=== PATIENT | male | born 1945 | race Hispanic/Latino ===

== ENCOUNTER → 2019-01-08 | Day surgery (SDC) | payer MEDICARE ==
[2019-01-04 17:24] LABS: BASOPHILS # (AUTO) 0.1 (0.0-0.1); BASOPHILS % 0.6 % (0.0-1.0); EOSINOPHILS # (AUTO) 0.2 (0.0-0.4); EOSINOPHILS % 1.9 % (0.0-6.0); HEMATOCRIT 35.2 % (38.2-49.6); HEMOGLOBIN 11.6 g/dL (14.0-18.0); LYMPHOCYTES # (AUTO) 2.8 (1.0-3.2); LYMPHOCYTES % 27.9 % (18.0-39.1); MEAN CORPUSCULAR HEMOGLOBIN 29.1 pg (28-32); MEAN CORPUSCULAR VOLUME 88.2 fL (81-99); MONOCYTES # (AUTO) 0.7 (0.2-0.8); MONOCYTES % 7.5 % (4.4-11.3); NEUTROPHILS # (AUTO) 6.1 (2.1-6.9); NEUTROPHILS % 61.8 % (38.7-80.0); PLATELET COUNT 179 x10e3/uL (140-360); RED BLOOD COUNT 3.99 x10e6/uL (4.3-5.7); RED CELL DISTRIBUTION WIDTH 14.2 % (11.7-14.4)
[2019-01-04 17:37] LABS: INR 0.84; PARTIAL THROMBOPLASTIN TIME 28.7 seconds (23.8-35.5)
[2019-01-04 17:42] LABS: ALBUMIN 4.3 g/dL (3.5-5.0); ALBUMIN/GLOBULIN RATIO 1.4 (0.8-2.0); ANION GAP 14.9 mmol/L (8-16); CALCIUM 9.8 mg/dL (8.4-10.2); CREATININE, SERUM 1.2 mg/dL (0.72-1.25); POTASSIUM 3.9 mmol/L (3.5-5.1)
--- NOTE | 2019-01-04 17:50 | Diagnostic Imaging Report ---
EXAMINATION: CHEST 2 VIEWS INDICATION: Preoperative COMPARISON: None. FINDINGS: TUBES and LINES: None. LUNGS: The lung volumes are normal. No focal consolidation or pulmonary edema. PLEURA: No pleural effusion or pneumothorax. HEART AND MEDIASTINUM: The cardiomediastinal silhouette is normal in size and contour. Atherosclerotic calcifications of the thoracic aorta. BONES AND SOFT TISSUES: No acute fracture or dislocation. UPPER ABDOMEN: No free air under the diaphragm. IMPRESSION: No focal pneumonia or pulmonary edema. Signed by: Matt Quintana MD on 01/04/2019 5:47 PM
[~2019-01-08] VITALS: Ht 170.2 cm; Wt 81.6 kg
[2019-01-08] VITALS (9 sets, daily range): BP systolic 125–165; BP diastolic 56–77
[~2019-01-08] MED LIST: AMLODIPINE BESY10 MG PO; AVODART0.5 MG PO; CENTRUM COMPLE1 EACH PO; CLONIDINE HCL0.1 MG PO; CLOPIDOGREL75 MG PO; CRESTOR10 MG PO; DIPHENHYDRAMINE25 M2 PO; FENTANYL CITRATE/PF 100MCG/2 ML INJ ONE; FERROUS SULFAT325 MG PO; FLOMAX0.4 MG PO; HEPARIN SOD/SOD CHLORIDE 2,000 ML ONE; IOPAMIDOL 300MG/ML 100 ML INFUS..BTL IV ONE; JANUMET XR 1001 EACH PO; LIDOCAINE HCL 2% LOCAL 20 ML VIAL ONE; LORATADINE10 MG PO; LOSARTAN POTAS100 MG PO; MIDAZOLAM HCL 2 MG/2 ML VIAL ONE; OMEGA 3 1,0001 EACH PO; OYSTER SHELL 51 EACH PO; PREPARATION H RC; RAPAFLO8 MG PO; SENNA LAXATIVE1 EACH PO; SODIUM CHLORIDE 0.9% 1000ML 1,000 ML ONE; TRIAMTERENE-HCTZ1 EA PO; VITAMIN B12-FO1 EACH PO; [UNRECOGNIZED DRUG - MIXTURE] PO; [UNRECOGNIZED DRUG - OTHER] PO
--- OUTSIDE RECORDS SUMMARY | 2019-01-08 07:03 | XMS REPORT ---
Author Author [facility] Address Unknown Phone Unavailable Care Team Providers Care Assembler Unit Name Role Phone MARCIA OSMAN Unavailable Unavailable Problems This patient has no known problems. Allergies, Adverse Reactions, Alerts This patient has no known allergies or adverse reactions. Medications This patient has no known medications. Results Test Description Test Time Test Comments Text Results Atomic Results Result Comments CHEST 2 VIEWS 2019-01-04 17:46:00 [facility] [address] [address] Patient Name: ISAÍAS MONTILLA MR #: [id number] : 1945 Age/Sex: 73/M Req #: [id number] [facility] Physician: Ordered by: MARCIA OSMAN MD Report #: [id number] Location: [facility] Room/Bed: Procedure: [id number] DX/CHEST 2 VIEWS Exam Date: 01/04/19 Exam Time: 1730 REPORT STATUS: Signed EXAMINATION: CHEST 2 VIEWS INDICATION: Preoperative COMPARISON: None. FINDINGS: TUBES and LINES: None. LUNGS: The lung volumes are normal. No focal consolidation or pulmonary edema. PLEURA: No pleural effusion or pneumothorax. HEART AND MEDIASTINUM: The cardiomediastinal silhouette is normal in size and contour. Atherosclerotic calcifications of the thoracic aorta. BONES AND SOFT TISSUES: No acute fracture or dislocation. UPPER ABDOMEN: No free air under the diaphragm. IMPRESSION: No focal pneumonia or pulmonary edema. Signed by: Bri Quintana MD on 01/04/2019 5:47 PM Dictated By: BRI QUINTANA MD 48 Transcribed By: JOSE on 01/04/191746 COPY TO: MARCIA OSMAN MD
--- NOTE | 2019-01-08 09:52 | NUR ---
0952am Bedside report received from CHARLIE Moore. Alert oriented and appropriate, PERRLA, respirations even and unlabored to room air. Pulses x4 extremities palpable equal and strong. Pedal pulses PT/DP Cap fill brisk < [address] Ryan spoke with family DC papers signed with copies to family Skin warm and dry integrity appears intact IV 20g to presents healthy w/o s/s of infiltration or complaint. Abdomen soft and supple. pt offered toileting, denies need to urinate or defecate. No personal affects with patient. Family remain at bedside. Pt and family verbalizes understanding of POC. Remains flat till dc time 1pm. No grossissues pain pallor pressure dysrhythmia. Rt groin MYNX site dry and intact no hematoma or oozing. ds/rn
--- NOTE | 2019-01-08 12:08 | Operative Report ---
DATE OF PROCEDURE: 01/08/2019 SURGEON: Brian Ryan MD PROCEDURE: Peripheral angiogram third order. INDICATION: Peripheral vascular disease. ANESTHESIA: Versed, fentanyl, and lidocaine. COMPLICATIONS: None. TECHNIQUE: The right groin was draped and prepped in the usual fashion. The area was anesthetized with lidocaine. Standard Seldinger technique was used to place a 6-Persian sheath into the right femoral artery without difficulty. An Advantage guidewire and internal mammary artery catheter used to cross from the right common femoral artery down to the left iliac artery and then the left popliteal artery. Selective injections of the left leg were obtained, selective injections of the right leg were obtained through the existing sheath. There were no complications. RESULTS: Right leg: The patient had minimal disease in the right leg with three-vessel runoff and minimal disease in any of the tibial vessels. There was no significant stenosis in the right leg. Left leg: The left leg demonstrated patent common iliac, patent external iliac, patent internal iliac, patent common femoral, patent superficial femoral artery, patent femoral artery, patent popliteal artery and patent trifurcation with no significant disease. The left anterior tibial artery was diffusely diseased, it did not extend to the foot. The left peroneal artery and left posterior tibial arteries did extend down to the foot and there was two-vessel runoff. CONCLUSION: The patient has a diffusely diseased left anterior tibial artery with patent posterior tibial and peroneal arteries on the left and two-vessel runoff. Brian Ryan MD DSH/MODL /[id number]
--- NOTE | 2019-01-08 12:30 | NUR ---
1230p meets DC criteria. Left froin Mynx site assessed for s/s of complication and w/o s/s hematoma. Skin Intact warm, dry, no discolor, and pulses present. IV removed from . Distal tip appears intact. VS WNL. Pt denies pain, sob, or need at this time. Family escorted pt out. Review of discharge paperwork and follow up instructions. verbalized understanding. Pt to wheelchair and transported to front of hospital. Transferred to private vehicle under own strength w/o incident with DC paperwork in hand. - ds/rn
== END | disposition home or self-care (01) ==
LOC: CATH LAB 07:01
PROVIDERS: ATTEND Internal Medicine Cardiovascular Disease
DX: I70.213 Atherosclerosis of native arteries of extremities with intermittent claudication, bilateral legs (principal); I10 Essential (primary) hypertension; I25.10 Atherosclerotic heart disease of native coronary artery without angina pectoris; Z01.812 Encounter for preprocedural laboratory examination; Z01.818 Encounter for other preprocedural examination; Z79.02 Long term (current) use of antithrombotics/antiplatelets; Z95.5 Presence of coronary angioplasty implant and graft; Z82.49 Family history of ischemic heart disease and other diseases of the circulatory system
CPT/HCPCS: 36247; 36415; 71046; 75716; 80053; 85025; 85610; 85730; C1760; C1769 ×2; J2001; J2250; J3010; J7030; Q9967

== ENCOUNTER 2019-08-09 10:53 | Emergency (ER) | payer OTHER ==
[~2019-08-09] VITALS: Ht 170.2 cm; Wt 81.6 kg
[~2019-08-09 10:53] MED LIST changes: -FENTANYL CITRATE/PF 100MCG/2 ML INJ ONE; -HEPARIN SOD/SOD CHLORIDE 2,000 ML ONE; -IOPAMIDOL 300MG/ML 100 ML INFUS..BTL IV ONE; -LIDOCAINE HCL 2% LOCAL 20 ML VIAL ONE; -MIDAZOLAM HCL 2 MG/2 ML VIAL ONE; -SODIUM CHLORIDE 0.9% 1000ML 1,000 ML ONE
[2019-08-09] MEDS ORDERED: CEFEPIME HCL 1 GM VIAL IV SCH (11:15)
[2019-08-09] MEDS ORDERED: SODIUM CHLORIDE 0.9% 1000ML 1,000 ML IV SCH (11:15)
[2019-08-09] MEDS ORDERED: CEFEPIME 1GM/NS 0.9% 50 ML 50 ML IV ONE (11:20)
[2019-08-09 11:38] LABS: BASOPHILS % 0.2 % (0.0-1.0); EOSINOPHILS % 0.3 % (0.0-6.0); HEMATOCRIT 36.4 % (38.2-49.6); HEMOGLOBIN 12.1 g/dL (14.0-18.0); LYMPHOCYTES % 14.9 % (18.0-39.1); MEAN CORPUSCULAR HEMOGLOBIN 28.3 pg (28-32); MEAN CORPUSCULAR HGB CONC 33.2 g/dL (31-35); MEAN CORPUSCULAR VOLUME 85.2 fL (81-99); MONOCYTES % 7.1 % (4.4-11.3); NEUTROPHILS # (AUTO) 10.6 (2.1-6.9); NEUTROPHILS % 77.2 % (38.7-80.0); PLATELET COUNT 171 x10e3/uL (140-360); RED BLOOD COUNT 4.27 x10e6/uL (4.3-5.7); RED CELL DISTRIBUTION WIDTH 14.9 % (11.7-14.4)
[2019-08-09 11:58] LABS: ALBUMIN 3.7 g/dL (3.5-5.0); ALBUMIN/GLOBULIN RATIO 1.2 (0.8-2.0); ANION GAP 12.6 mmol/L (8-16); CALCIUM 9.3 mg/dL (8.4-10.2); CREATININE, SERUM 1.34 mg/dL (0.72-1.25); POTASSIUM 3.6 mmol/L (3.5-5.1)
[2019-08-09] MEDS ORDERED: IOPAMIDOL 370 MG/ML 200 ML INFUS..BTL INJ ONE (12:24)
[2019-08-09] MEDS ORDERED: SODIUM CHLORIDE 0.9% 250ML 250 ML ONE (12:24)
--- NOTE | 2019-08-09 12:34 | NUR ---
IRRIGATED MCNEILL WITH 350ML NS WITH RETURN OF CLEAR RETURN. STILL HAS BLOOD CLOTS THAT OCCASIONALLY PASS. DISCUSSED WITH MAGDALENA TAN.
[2019-08-09 12:47] LABS: CLARITY,URINE CLOUDY (CLEAR); COLOR,URINE RED (YELLOW); KETONES,URINE NEGATIVE (NEGATIVE); LEUKOCYTE ESTERASE ,URINE SMALL (NEGATIVE); NITRITE,URINE NEGATIVE (NEGATIVE); PROTEIN,URINE DIPSTICK 2+ (NEGATIVE)
[2019-08-09 12:48] LABS: BILIRUBIN,URINE NEGATIVE (NEGATIVE); URINE UROBILINOGEN 0.2 mg/dL (0.2 - 1)
[2019-08-09 13:01] LABS: RBC,URINE >50 /HPF (0-5)
[2019-08-09 13:02] LABS: BACTERIA,URINE RARE /HPF; EPITHELIAL CELLS,URINE RARE /LPF
[2019-08-09] MEDS ORDERED: LIDOCAINE JELLY 2% 10ML URO-JET TOP ONE (13:45)
--- NOTE | 2019-08-09 14:53 | Diagnostic Imaging Report ---
Exam: CT abdomen and pelvis Clinical history: Hematuria Technique: Helical images of the abdomen and pelvis were obtained before and after IV contrast administration DOSE REDUCTION: The exams was performed according to the departmental dose-optimization program which includes automated exposure control, adjustment of the mA and/or kV according to patient size and/or use of iterative reconstruction technique. Findings: The lung bases are clear. There is no evidence of pleural effusion. The cardiac size is within normal limits. The liver, gallbladder, pancreas, spleen, and adrenal glands are unremarkable. Multiple subcentimeter hypodense lesions are noted in both kidneys most compatible with cysts. The small and large bowels are normal in caliber without evidence of obstruction. Moderate retained feces are noted in the cecum. A small calcification structures noted at the base of the appendix which may represent a appendicolith. The appendix is within normal limits in caliber. A Otero catheter is noted within the bladder lumen. There is circumferential thickening of the bladder wall with trabeculation which may be associated with chronic bladder outlet obstruction. The prostate also appears enlarged. There is no evidence of lymphadenopathy or free fluid. The aorta and IVC are normal in caliber. Impression: 1. Circumferential thickening of the urinary bladder with trabeculation which may be associated chronic bladder outlet obstruction. If indicated, cystoscopy can be performed for further assessment. 2. Prostate enlargement. 3. Multiple hypodense lesions in both kidneys most compatible with cysts. 4. Tiny appendicolith without evidence of acute appendicitis. Signed by: Dr. Enoch Rogers MD on 08/09/2019 2:50 PM
[2019-08-09] MEDS ORDERED: FLOMAX0.4 MG PO (15:33)
[2019-08-09] MEDS ORDERED: BACTRIM DS TAB1 EACH PO (15:33)
[2019-08-09] MEDS ORDERED: OXYBUTYNIN CHLOR5 MG PO (16:13)
[2019-08-09] MEDS ORDERED: OXYBUTYNIN CHLORIDE 5 MG TAB PO ONE (16:15)
== END 2019-08-09 16:35 | disposition home or self-care (01) ==
LOC: ER 10:53
DX: R30.0 Dysuria (principal); R33.9 Retention of urine, unspecified; N30.01 Acute cystitis with hematuria; N40.1 Benign prostatic hyperplasia with lower urinary tract symptoms; I10 Essential (primary) hypertension; E11.9 Type 2 diabetes mellitus without complications; I25.10 Atherosclerotic heart disease of native coronary artery without angina pectoris; E78.5 Hyperlipidemia, unspecified
CPT/HCPCS: 36415; 51702; 74178; 80053; 81001; 85025; 99284; J0692; J7030; J7050; Q9967; 51700

== ENCOUNTER → 2019-12-15 | Day surgery (SDC) | payer MEDICARE, OTHER ==
[2019-12-11 10:51] LABS: BASOPHILS % 0.5 % (0.0-1.0); EOSINOPHILS # (AUTO) 0.1 (0.0-0.4); EOSINOPHILS % 1.3 % (0.0-6.0); HEMATOCRIT 37.3 % (38.2-49.6); HEMOGLOBIN 12.3 g/dL (14.0-18.0); LYMPHOCYTES # (AUTO) 2.1 (1.0-3.2); LYMPHOCYTES % 25.6 % (18.0-39.1); MEAN CORPUSCULAR HEMOGLOBIN 28.3 pg (28-32); MEAN CORPUSCULAR VOLUME 85.7 fL (81-99); MONOCYTES # (AUTO) 0.6 (0.2-0.8); MONOCYTES % 7.2 % (4.4-11.3); NEUTROPHILS # (AUTO) 5.4 (2.1-6.9); NEUTROPHILS % 65.2 % (38.7-80.0); PLATELET COUNT 210 x10e3/uL (140-360); RED BLOOD COUNT 4.35 x10e6/uL (4.3-5.7); RED CELL DISTRIBUTION WIDTH 13.6 % (11.7-14.4)
[~2019-12-15] MED LIST changes: +BACTRIM DS TAB1 EACH PO; +EPHEDRINE SULFATE INJ 50 MG/ML VIAL ONE; +MAGNESIUM OXID400 MG PO; +OXYBUTYNIN CHLOR5 MG PO; +PROPOFOL IV EMULSION 10 MG/ML 20 ML VIAL ONE
[2019-12-15] MEDS: HYOSCYAMINE 0.125 MG TAB ONE ×2 (10:55→10:58)
[2019-12-15 12:10] VITALS: BP 140/73
--- NOTE | 2019-12-15 13:24 | Operative Report ---
DATE OF PROCEDURE: 12/15/2019 SURGEON: Jose Mathis MD PROCEDURES: EGD with biopsies and colonoscopy with polypectomy. INDICATION FOR EGD: Melena. INDICATIONS FOR COLONOSCOPY: Surveillance colonoscopy, personal history of colon polyps, anemia. MEDICATIONS: The patient was under MAC, please see anesthesiologist's note. PROCEDURE IN DETAIL: With the patient in the left lateral decubitus position, a flexible fiberoptic Olympus gastroscope was introduced into the esophagus under direct visualization without any difficulty. There was some patchy erythema noted in distal esophagus. The scope was then advanced with ease into the stomach. Mucosa overlying the antrum revealed some diffuse erythema and low-grade edema, and biopsies were obtained and sent to stain for Helicobacter pylori. There were some prominent folds noted in the body of the stomach and biopsies were obtained. Pylorus was of normal contour and shape, was intubated with ease and the scope was advanced all the way to the second portion of the duodenum. Biopsies were obtained from the proximal second portion and duodenal bulb to rule out sprue. The scope was then withdrawn back into the stomach and retroflexed. Mucosa overlying the fundus and the cardia appeared to be within normal limits. The scope was then straightened out, it was subsequently withdrawn, and the patient tolerated the procedure well. IMPRESSION: 1. Distal esophagitis. 2. Gastritis, biopsied, biopsies sent to stain for Helicobacter pylori. 3. Rule out sprue. PLAN: Follow up histology. Initiate Protonix 40 mg one p.o. q.a.m. before meals. The patient was then turned around and after adequate lubrication of the anal canal, a flexible fiberoptic Olympus colonoscope was inserted into the rectum with ease and advanced all the way to the cecum. A single diverticulum was noted in the cecum. One polyp was removed per the cold biopsy forceps from the cecum and one polyp was removed per the cold biopsy forceps from the proximal ascending colon. The rest of the ascending colon, transverse, descending, and sigmoid grossly appeared to be within normal limits. Two polyps were hot biopsied from the rectum. The scope was then retroflexed into the distal rectum and small internal hemorrhoids were noted, none of which was actively bleeding. The scope was then straightened out, it was subsequently withdrawn, and the patient tolerated the procedure well. IMPRESSION: 1. Single cecal diverticulum. 2. Cecal polyp, minute, removed per the cold biopsy forceps. 3. Ascending colon polyp, minute, removed per the cold biopsy forceps. 4. Rectal polyps x2, hot biopsied. PLAN: Follow up histology. Initiate high-fiber, low-fat diet. Initiate high-fiber supplement. The patient will need a small bowel series and if negative, might benefit from a capsule endoscopy. A followup colonoscopy in 3 to 5 years. MD SHONA Morgan/BHAVIK /[id number] cc: Gregorio Venegas DO
== END | disposition home or self-care (01) ==
LOC: ENDO 09:57
PROVIDERS: ATTEND Internal Medicine Gastroenterology
DX: D12.0 Benign neoplasm of cecum (principal); D12.2 Benign neoplasm of ascending colon; K62.1 Rectal polyp; K20.9 Esophagitis, unspecified; K29.70 Gastritis, unspecified, without bleeding; K57.30 Diverticulosis of large intestine without perforation or abscess without bleeding; D64.89 Other specified anemias; K59.00 Constipation, unspecified; E78.00 Pure hypercholesterolemia, unspecified; Z72.0 Tobacco use; Z68.28 Body mass index [BMI] 28.0-28.9, adult; E11.9 Type 2 diabetes mellitus without complications; I10 Essential (primary) hypertension; I25.10 Atherosclerotic heart disease of native coronary artery without angina pectoris; K31.9 Disease of stomach and duodenum, unspecified; Z11.59 Encounter for screening for other viral diseases; Z01.812 Encounter for preprocedural laboratory examination; Z01.818 Encounter for other preprocedural examination
CPT/HCPCS: 36415 ×2; 43239; 45380; 45384; 82948; 85025; 87635; 93005; J2704; 45378

== ENCOUNTER → 2020-01-06 | Outpatient (CLI) | payer MEDICARE, OTHER ==
[~2020-01-06] MED LIST changes: -EPHEDRINE SULFATE INJ 50 MG/ML VIAL ONE; +HEPARIN SOD (PORCINE) 1000 UNIT/ML SDV ONE; -PROPOFOL IV EMULSION 10 MG/ML 20 ML VIAL ONE
--- NOTE | 2020-01-06 12:06 | Diagnostic Imaging Report ---
Tagged-RBC GI Bleed Study Clinical information: 74-year-old male with anemia and black stools x1 month.. Discussion: The patient's own red blood cells were labeled with 26.7 mCi of technetium-99m pertechnetate using the in vitro method (UltraTag). Dynamic images of the abdomen were obtained through 60 minutes. Distribution of tracer activity appears physiologic throughout the abdominal blood pool. No abnormal accumulation of tracer is seen within the gastrointestinal lumen. Diffuse haziness of the peritoneal cavity is suggestive of ascites. Impression: 1. No scan evidence of active gastrointestinal bleeding at this time. 2. Cannot exclude ascites. Correlative imaging may be warranted. Signed by: Dr. Temi Lechuga M.D. on 01/06/2020 12:03 PM
== END ==
LOC: NM 08:36
PROVIDERS: ATTEND Internal Medicine Gastroenterology
DX: D64.9 Anemia, unspecified (principal)
CPT/HCPCS: 78278; A9512 ×2; J1644

== ENCOUNTER → 2021-11-06 | Outpatient (CLI) | payer MEDICARE ==
[~2021-11-06] MED LIST changes: -HEPARIN SOD (PORCINE) 1000 UNIT/ML SDV ONE; +IOPAMIDOL 370 MG/ML 100 ML INFUS..BTL INJ ONE; +SODIUM CHLORIDE 0.9% 100 ML ONE
[2021-11-06 09:31] LABS: CREATININE, SERUM 1.05 mg/dL (0.72-1.25)
== END ==
LOC: CT 08:38
PROVIDERS: ATTEND Internal Medicine Cardiovascular Disease
DX: I65.23 Occlusion and stenosis of bilateral carotid arteries (principal); I70.213 Atherosclerosis of native arteries of extremities with intermittent claudication, bilateral legs
CPT/HCPCS: 36415; 70498; 82565; 84520; J7050; Q9967

== ENCOUNTER → 2021-11-07 | Outpatient (CLI) | payer MEDICARE ==
[~2021-11-07] MED LIST changes: -SODIUM CHLORIDE 0.9% 100 ML ONE
== END ==
LOC: CT 08:14
PROVIDERS: ATTEND Internal Medicine Cardiovascular Disease
DX: I65.23 Occlusion and stenosis of bilateral carotid arteries (principal); I70.213 Atherosclerosis of native arteries of extremities with intermittent claudication, bilateral legs
CPT/HCPCS: 75635; Q9967

== ENCOUNTER → 2022-01-29 | Outpatient (CLI) | payer MEDICARE ==
[~2022-01-29] MED LIST changes: +DIATRIZOATE MEGL/DIATRIZOA SOD 30 ML BTL PO ONE
[2022-01-29 12:42] LABS: CREATININE, SERUM 1.06 mg/dL (0.72-1.25)
== END ==
LOC: CT 11:42
PROVIDERS: ATTEND Internal Medicine Gastroenterology
DX: R10.9 Unspecified abdominal pain (principal); R74.8 Abnormal levels of other serum enzymes
CPT/HCPCS: 36415; 74177; 82565; 84520; Q9963; Q9967

== ENCOUNTER → 2022-04-04 | Day surgery (SDC) | payer MEDICARE ==
[2022-04-02 11:16] LABS: BASOPHILS # (AUTO) 0.1 (0.0-0.1); BASOPHILS % 0.6 % (0.0-1.0); EOSINOPHILS # (AUTO) 0.2 (0.0-0.4); EOSINOPHILS % 2.4 % (0.0-6.0); HEMATOCRIT 34.9 % (38.2-49.6); HEMOGLOBIN 10.8 g/dL (14.0-18.0); LYMPHOCYTES # (AUTO) 3.3 (1.0-3.2); LYMPHOCYTES % 35.4 % (18.0-39.1); MEAN CORPUSCULAR HEMOGLOBIN 28.6 pg (28-32); MEAN CORPUSCULAR HGB CONC 30.9 g/dL (31-35); MEAN CORPUSCULAR VOLUME 92.3 fL (81-99); MONOCYTES # (AUTO) 0.7 (0.2-0.8); MONOCYTES % 7.3 % (4.4-11.3); PLATELET COUNT 209 x10e3/uL (140-360); RED BLOOD COUNT 3.78 x10e6/uL (4.3-5.7)
[2022-04-02 11:24] LABS: INR 0.86; PROTHROMBIN TIME 12.5 seconds (11.9-14.5)
[2022-04-02 11:25] LABS: PARTIAL THROMBOPLASTIN TIME 26.3 seconds (23.8-35.5)
[2022-04-02 11:32] LABS: ALBUMIN 3.9 g/dL (3.5-5.0); ALBUMIN/GLOBULIN RATIO 1.3 (0.8-2.0); ANION GAP 14.8 mmol/L (8-16); CALCIUM 9.2 mg/dL (8.4-10.2); CREATININE, SERUM 0.96 mg/dL (0.72-1.25); POTASSIUM 3.8 mmol/L (3.5-5.1)
[~2022-04-04] MED LIST changes: -DIATRIZOATE MEGL/DIATRIZOA SOD 30 ML BTL PO ONE; -IOPAMIDOL 370 MG/ML 100 ML INFUS..BTL INJ ONE; +JANUMET 50-1,01 EACH PO; +PROPOFOL IV EMULSION 10 MG/ML 20 ML VIAL ONE; +VITAMIN E268 MG PO
[2022-04-04 12:54] VITALS: BP 116/62
== END | disposition home or self-care (01) ==
LOC: OR 09:52
PROVIDERS: ATTEND Internal Medicine Gastroenterology
DX: K29.50 Unspecified chronic gastritis without bleeding (principal); I25.10 Atherosclerotic heart disease of native coronary artery without angina pectoris; I10 Essential (primary) hypertension; N40.0 Benign prostatic hyperplasia without lower urinary tract symptoms; H26.9 Unspecified cataract; K63.5 Polyp of colon; K76.9 Liver disease, unspecified; K62.1 Rectal polyp; Z68.27 Body mass index [BMI] 27.0-27.9, adult; D64.9 Anemia, unspecified; E78.00 Pure hypercholesterolemia, unspecified; Z95.5 Presence of coronary angioplasty implant and graft; Z01.812 Encounter for preprocedural laboratory examination; Z01.810 Encounter for preprocedural cardiovascular examination; Z88.8 Allergy status to other drugs, medicaments and biological substances; F17.210 Nicotine dependence, cigarettes, uncomplicated
CPT/HCPCS: 36415; 43239; 80053; 85025; 85610; 85730; 88305; 88342; 93005; C9113; 88304; 88312

== ENCOUNTER 2022-05-11 11:55 | Emergency (ER) | payer MEDICARE ==
[~2022-05-11] VITALS: Ht 170.2 cm; Wt 81.6 kg
[~2022-05-11 11:55] MED LIST changes: -PROPOFOL IV EMULSION 10 MG/ML 20 ML VIAL ONE
[2022-05-11] MEDS ORDERED: LACTATED RINGER'S 1,000 ML INJ ONE (12:15)
[2022-05-11] MEDS ORDERED: SODIUM CHLORIDE FLUSH 10 ML SYR INJ PRN (12:15)
[2022-05-11 12:54] LABS: BASOPHILS % 0.3 % (0.0-1.0); EOSINOPHILS # (AUTO) 0.1 (0.0-0.4); EOSINOPHILS % 1.3 % (0.0-6.0); HEMATOCRIT 35.2 % (38.2-49.6); HEMOGLOBIN 10.9 g/dL (14.0-18.0); LYMPHOCYTES # (AUTO) 1.5 (1.0-3.2); LYMPHOCYTES % 20.7 % (18.0-39.1); MEAN CORPUSCULAR HEMOGLOBIN 26.7 pg (28-32); MEAN CORPUSCULAR VOLUME 86.3 fL (81-99); MONOCYTES # (AUTO) 0.6 (0.2-0.8); MONOCYTES % 8.3 % (4.4-11.3); NEUTROPHILS # (AUTO) 4.9 (2.1-6.9); PLATELET COUNT 198 x10e3/uL (140-360); RED BLOOD COUNT 4.08 x10e6/uL (4.3-5.7); RED CELL DISTRIBUTION WIDTH 14.6 % (11.7-14.4)
[2022-05-11 12:59] LABS: CLARITY,URINE CLEAR (CLEAR); COLOR,URINE YELLOW (YELLOW); KETONES,URINE TRACE (NEGATIVE); LEUKOCYTE ESTERASE ,URINE NEGATIVE (NEGATIVE); NITRITE,URINE NEGATIVE (NEGATIVE); PROTEIN,URINE DIPSTICK 1+ (NEGATIVE); URINE UROBILINOGEN 0.2 mg/dL (0.2 - 1)
[2022-05-11 13:09] LABS: ALBUMIN 3.3 g/dL (3.5-5.0); ANION GAP 16.4 mmol/L (8-16); CALCIUM 9.9 mg/dL (8.4-10.2); CREATININE, SERUM 1.19 mg/dL (0.72-1.25); MAGNESIUM 1.8 MG/DL (1.3-2.1); PHOSPHORUS 3.7 MG/DL (2.3-4.7); POTASSIUM 3.4 mmol/L (3.5-5.1)
[2022-05-11 13:13] LABS: BACTERIA,URINE FEW /HPF; EPITHELIAL CELLS,URINE FEW /LPF; RBC,URINE 0-5 /HPF (0-5); WBC,URINE (MAN) 0-5 /HPF (0-5)
[2022-05-11 14:17] VITALS: BP 161/60
== END 2022-05-11 14:20 | disposition home or self-care (01) ==
LOC: ER 11:58
DX: R41.0 Disorientation, unspecified (principal); T37.5X5A Adverse effect of antiviral drugs, initial encounter; E11.65 Type 2 diabetes mellitus with hyperglycemia; I10 Essential (primary) hypertension; E78.5 Hyperlipidemia, unspecified; I25.10 Atherosclerotic heart disease of native coronary artery without angina pectoris; K21.9 Gastro-esophageal reflux disease without esophagitis
CPT/HCPCS: 36415; 70450; 71045; 80053; 81001; 83735; 84100; 84484; 85025; 99284; J7121

== ENCOUNTER 2022-08-04 22:47 | Emergency (ER) | payer MEDICARE ==
[~2022-08-04] VITALS: Ht 170.2 cm; Wt 81.6 kg
[2022-08-04 23:22] LABS: BASOPHILS # (AUTO) 0.1 (0.0-0.1); BASOPHILS % 0.6 % (0.0-1.0); EOSINOPHILS # (AUTO) 0.1 (0.0-0.4); LYMPHOCYTES # (AUTO) 2.1 (1.0-3.2); MEAN CORPUSCULAR HEMOGLOBIN 27.4 pg (28-32); MEAN CORPUSCULAR VOLUME 91.2 fL (81-99); MONOCYTES # (AUTO) 0.8 (0.2-0.8); MONOCYTES % 5.9 % (4.4-11.3); NEUTROPHILS # (AUTO) 9.5 (2.1-6.9); NEUTROPHILS % 75.1 % (38.7-80.0); PLATELET COUNT 253 x10e3/uL (140-360); RED BLOOD COUNT 3.29 x10e6/uL (4.3-5.7); RED CELL DISTRIBUTION WIDTH 19.4 % (11.7-14.4)
[2022-08-04] MEDS ORDERED: SODIUM CHLORIDE FLUSH 10 ML SYR IV PRN (23:45)
[2022-08-04 23:56] LABS: CLARITY,URINE CLEAR (CLEAR); COLOR,URINE YELLOW (YELLOW)
[2022-08-04 23:57] LABS: AMPHETAMINES SCREEN,URINE NEGATIVE (NEGATIVE); BACTERIA,URINE FEW /HPF; BENZODIAZEPINES SCREEN,URINE NEGATIVE (NEGATIVE); KETONES,URINE 1+ (NEGATIVE); LEUKOCYTE ESTERASE ,URINE NEGATIVE (NEGATIVE); NITRITE,URINE NEGATIVE (NEGATIVE); PHENCYCLIDINE SCREEN,URINE NEGATIVE (NEGATIVE); PROTEIN,URINE DIPSTICK NEGATIVE (NEGATIVE); RBC,URINE 0-5 /HPF (0-5); URINE UROBILINOGEN 0.2 mg/dL (0.2 - 1); WBC,URINE (MAN) 0-5 /HPF (0-5)
[2022-08-04 23:58] LABS: INR 0.9; PROTHROMBIN TIME 12.4 seconds (11.9-14.5)
[2022-08-04 23:59] LABS: PARTIAL THROMBOPLASTIN TIME 24.2 seconds (23.8-35.5)
[2022-08-05 00:06] LABS: EPITHELIAL CELLS,URINE MANY /LPF; MUCUS,URINE MODERATE (RARE)
[2022-08-05 00:07] LABS: ALBUMIN 3.6 g/dL (3.5-5.0); ALBUMIN/GLOBULIN RATIO 1.1 (0.8-2.0); CALCIUM 9.9 mg/dL (8.4-10.2); CREATININE, SERUM 1.18 mg/dL (0.72-1.25)
[2022-08-05] MEDS ORDERED: FERGON240 MG PO (04:07)
[2022-08-05 04:28] VITALS: BP 123/82
== END 2022-08-05 04:27 | disposition home or self-care (01) ==
LOC: ER 23:45
DX: R41.0 Disorientation, unspecified (principal); R53.1 Weakness; D64.9 Anemia, unspecified; R26.2 Difficulty in walking, not elsewhere classified; R94.31 Abnormal electrocardiogram [ECG] [EKG]
CPT/HCPCS: 36415; 70450; 71045; 80053; 80307; 80320; 81001; 84484; 85025; 85610; 85730; 93005; 94760; 99284

== ENCOUNTER 2022-08-09 11:59 | Emergency (ER) | payer MEDICARE ==
[~2022-08-09] VITALS: Ht 170.2 cm; Wt 81.6 kg
[~2022-08-09 11:59] MED LIST changes: +FERGON240 MG PO
[2022-08-09 12:53] LABS: BASOPHILS % 0.4 % (0.0-1.0); EOSINOPHILS # (AUTO) 0.2 (0.0-0.4); EOSINOPHILS % 2.2 % (0.0-6.0); HEMATOCRIT 27.7 % (38.2-49.6); HEMOGLOBIN 8.1 g/dL (14.0-18.0); LYMPHOCYTES # (AUTO) 2.1 (1.0-3.2); LYMPHOCYTES % 23.9 % (18.0-39.1); MEAN CORPUSCULAR HEMOGLOBIN 27.7 pg (28-32); MEAN CORPUSCULAR HGB CONC 29.2 g/dL (31-35); MEAN CORPUSCULAR VOLUME 94.9 fL (81-99); MONOCYTES # (AUTO) 0.6 (0.2-0.8); NEUTROPHILS # (AUTO) 5.9 (2.1-6.9); NEUTROPHILS % 66.1 % (38.7-80.0); PLATELET COUNT 259 x10e3/uL (140-360); RED BLOOD COUNT 2.92 x10e6/uL (4.3-5.7); RED CELL DISTRIBUTION WIDTH 20.4 % (11.7-14.4)
[2022-08-09 13:06] LABS: INR 0.92; PROTHROMBIN TIME 12.6 seconds (11.9-14.5)
[2022-08-09 13:07] LABS: PARTIAL THROMBOPLASTIN TIME 24.9 seconds (23.8-35.5)
[2022-08-09 13:14] LABS: ALBUMIN 3.6 g/dL (3.5-5.0); ALBUMIN/GLOBULIN RATIO 1.2 (0.8-2.0); ANION GAP 16.2 mmol/L (8-16); CALCIUM 9.7 mg/dL (8.4-10.2); CREATININE, SERUM 1.03 mg/dL (0.72-1.25); MAGNESIUM 1.7 MG/DL (1.3-2.1); POTASSIUM 4.2 mmol/L (3.5-5.1)
[2022-08-09 13:22] LABS: CREATINE KINASE MB 1.6 ng/mL (0-5.0)
[2022-08-09 13:30] LABS: CLARITY,URINE SL CLOUDY (CLEAR); COLOR,URINE YELLOW (YELLOW); LEUKOCYTE ESTERASE ,URINE SMALL (NEGATIVE); NITRITE,URINE NEGATIVE (NEGATIVE)
[2022-08-09 13:31] LABS: KETONES,URINE NEGATIVE (NEGATIVE); PROTEIN,URINE DIPSTICK NEGATIVE (NEGATIVE); URINE UROBILINOGEN 0.2 mg/dL (0.2 - 1)
[2022-08-09 13:43] LABS: BACTERIA,URINE RARE /HPF; EPITHELIAL CELLS,URINE MODERATE /LPF; RBC,URINE 0-5 /HPF (0-5)
[2022-08-09] MEDS ORDERED: NYSTATIN-TRIAMC15 GM TOP (15:02)
[2022-08-09] MEDS ORDERED: FLUCONAZOLE100 MG PO (15:02)
== END 2022-08-09 15:55 | disposition home or self-care (01) ==
LOC: ER 12:38
DX: R53.1 Weakness (principal); B37.42 Candidal balanitis; Z20.822 Contact with and (suspected) exposure to COVID-19; R94.31 Abnormal electrocardiogram [ECG] [EKG]
CPT/HCPCS: 36415; 70450; 71045; 80053; 81001; 82550; 82553; 83735; 83880; 84484; 85025; 85610; 85730; 87086; 93005; 99284; U0002

== ENCOUNTER → 2022-12-12 | Day surgery (SDC) | payer MEDICARE ==
[2022-12-10 09:26] LABS: BASOPHILS # (AUTO) 0.1 (0.0-0.1); BASOPHILS % 0.5 % (0.0-1.0); EOSINOPHILS # (AUTO) 0.2 (0.0-0.4); EOSINOPHILS % 2.3 % (0.0-6.0); HEMATOCRIT 38.6 % (38.2-49.6); HEMOGLOBIN 12.3 g/dL (14.0-18.0); LYMPHOCYTES # (AUTO) 2.5 (1.0-3.2); LYMPHOCYTES % 24.5 % (18.0-39.1); MEAN CORPUSCULAR HEMOGLOBIN 26.4 pg (28-32); MEAN CORPUSCULAR HGB CONC 31.9 g/dL (31-35); MEAN CORPUSCULAR VOLUME 82.8 fL (81-99); MONOCYTES # (AUTO) 0.7 (0.2-0.8); MONOCYTES % 7.3 % (4.4-11.3); NEUTROPHILS # (AUTO) 6.5 (2.1-6.9); NEUTROPHILS % 65.1 % (38.7-80.0); PLATELET COUNT 213 x10e3/uL (140-360); RED BLOOD COUNT 4.66 x10e6/uL (4.3-5.7); RED CELL DISTRIBUTION WIDTH 15.2 % (11.7-14.4)
[~2022-12-12] MED LIST changes: +CENTRUM ULTRA1 EAC1 PO; +FENTANYL CITRATE/PF 100MCG/2 ML INJ ONE; +FLUCONAZOLE100 MG PO; +GLIMEPIRIDE2 MG PO; +LACTATED RINGER'S 1,000 ML ONE; +LIDOCAINE HCL 2% LOCAL INJ 5 ML SDV VIAL INJ ONE; +MIDAZOLAM HCL 2 MG/2 ML VIAL ONE; +NYSTATIN-TRIAMC15 GM TOP; +PROPOFOL IV EMULSION 10 MG/ML 20 ML VIAL ONE; +PROTONIX20 MG PO
[2022-12-12 10:15] VITALS: BP 145/76; PULSE 62; RESP 18; O2SAT 97
[2022-12-17 07:19] LABS: ENDOMYSIAL ANTIBODIES, IGA Negative (Negative)
== END | disposition home or self-care (01) ==
LOC: OR 08:33
PROVIDERS: ATTEND Internal Medicine Gastroenterology
DX: K29.50 Unspecified chronic gastritis without bleeding (principal); D12.2 Benign neoplasm of ascending colon; D12.5 Benign neoplasm of sigmoid colon; K21.9 Gastro-esophageal reflux disease without esophagitis; K57.30 Diverticulosis of large intestine without perforation or abscess without bleeding; K64.8 Other hemorrhoids; D64.9 Anemia, unspecified; K76.9 Liver disease, unspecified; I10 Essential (primary) hypertension; I25.10 Atherosclerotic heart disease of native coronary artery without angina pectoris; E78.5 Hyperlipidemia, unspecified; F17.210 Nicotine dependence, cigarettes, uncomplicated; Z88.8 Allergy status to other drugs, medicaments and biological substances; Z01.810 Encounter for preprocedural cardiovascular examination; Z01.812 Encounter for preprocedural laboratory examination; Z79.02 Long term (current) use of antithrombotics/antiplatelets; Z79.84 Long term (current) use of oral hypoglycemic drugs; Z79.899 Other long term (current) drug therapy; Z95.5 Presence of coronary angioplasty implant and graft
CPT/HCPCS: 36415 ×2; 43239; 45380; 45385; 82784; 82948; 83516; 85025; 86256; 88305; 88342; 93005; C9113; J2001; J2250; J2704; J3010; J7121; 45378

== ENCOUNTER 2024-08-02 06:05 | Inpatient (IN) | payer MEDICARE ==
[2024-08-02] VITALS (7 sets, daily range): BP systolic 139–163; BP diastolic 54–62; PULSE 42–52; RESP 15–18; TEMP 97.5–98.2; O2SAT 98–100
[~2024-08-02] VITALS: Ht 167.6 cm; Wt 78.9 kg
[~2024-08-02 06:05] MED LIST changes: -FENTANYL CITRATE/PF 100MCG/2 ML INJ ONE; -LACTATED RINGER'S 1,000 ML ONE; -LIDOCAINE HCL 2% LOCAL INJ 5 ML SDV VIAL INJ ONE; -MIDAZOLAM HCL 2 MG/2 ML VIAL ONE; -PROPOFOL IV EMULSION 10 MG/ML 20 ML VIAL ONE
[2024-08-02] MEDS ORDERED: SODIUM CHLORIDE FLUSH 10 ML SYR IV PRN (06:30)
[2024-08-02] MEDS: ASPIRIN 81 MG CHEW TAB PO ONE (06:40)
[2024-08-02 06:56] LABS: BASOPHILS # (AUTO) 0.1 (0.0-0.1); BASOPHILS % 0.7 % (0.0-1.0); EOSINOPHILS # (AUTO) 0.3 (0.0-0.4); EOSINOPHILS % 3.3 % (0.0-6.0); HEMOGLOBIN 12.8 g/dL (14.0-18.0); LYMPHOCYTES # (AUTO) 3.3 (1.0-3.2); LYMPHOCYTES % 36.2 % (18.0-39.1); MEAN CORPUSCULAR HEMOGLOBIN 28.6 pg (28-32); MEAN CORPUSCULAR HGB CONC 32.8 g/dL (31-35); MEAN CORPUSCULAR VOLUME 87.1 fL (81-99); MONOCYTES # (AUTO) 0.8 (0.2-0.8); MONOCYTES % 8.5 % (4.4-11.3); NEUTROPHILS # (AUTO) 4.7 (2.1-6.9); NEUTROPHILS % 51.1 % (38.7-80.0); PLATELET COUNT 193 x10e3/uL (140-360); RED BLOOD COUNT 4.48 x10e6/uL (4.3-5.7); RED CELL DISTRIBUTION WIDTH 14.7 % (11.7-14.4)
[2024-08-02 07:06] LABS: ALBUMIN 3.9 g/dL (3.5-5.0); ALBUMIN/GLOBULIN RATIO 1.3 (0.8-2.0); ANION GAP 16.9 mmol/L (8-16); BILIRUBIN,TOTAL 0.6 mg/dL (0.2-1.2); CALCIUM 9.5 mg/dL (8.4-10.2); CREATININE, SERUM 1.17 mg/dL (0.72-1.25); POTASSIUM 3.9 mmol/L (3.5-5.1); TOTAL PROTEIN 6.8 g/dL (6.5-8.1)
[2024-08-02 07:12] LABS: TROPONIN I 0.016 ng/mL (0-0.300)
[2024-08-02] MEDS ORDERED: LECITHIN1200 MG PO (07:27)
[2024-08-02] MEDS ORDERED: FEROSUL325 MG PO (07:27)
[2024-08-02] MEDS ORDERED: [UNRECOGNIZED DRUG - OTHER] PO (07:27)
[2024-08-02] MEDS ORDERED: ROSUVASTATIN CAL5 MG PO (07:27)
[2024-08-02] MEDS ORDERED: VITAMIN C1000 MG PO (07:27)
[2024-08-02] MEDS ORDERED: VITAMIN E1000 UNI1 (07:27)
[2024-08-02] MEDS ORDERED: ONDANSETRON HCL INJ 2MG/ML 2ML 2 MG/ML VIAL IV PRN (09:00)
[2024-08-02] MEDS ORDERED: SODIUM CHLORIDE FLUSH 10 ML SYR INJ PRN (09:00)
[2024-08-02 09:57] LABS: INR 0.86; PROTHROMBIN TIME 12.3 seconds (11.9-14.5)
[2024-08-02 09:58] LABS: PARTIAL THROMBOPLASTIN TIME 28.1 seconds (23.8-35.5)
[2024-08-02] MEDS: NICOTINE 14 MG/EA PATCH TOP SCH (11:01)
[2024-08-02 13:21] LABS: FREE THYROXINE INDEX 2.12 (1.4-3.8); T3 UPTAKE 30.86 % (22.5-37.0); T4 (THYROXINE) 6.87 ug/dL (4.5-10.9); THYROID STIMULATING HORMONE 2.164 uIU/mL (0.350-4.940)
[2024-08-02 15:41] LABS: TROPONIN I 0.02 ng/mL (0-0.300)
[2024-08-02] MEDS ORDERED: VITAMIN E400 UNI1 PO (16:24)
[2024-08-02] MEDS ORDERED: HYDRALAZINE HCL 20 MG/ML VIAL IV PRN (20:00)
[2024-08-02] MEDS ORDERED: DEXTROSE 50% SYRINGE 50 ML IV PRN (20:00)
[2024-08-02] MEDS ORDERED: ACETAMINOPHEN 325 MG TAB PO PRN (20:00)
[2024-08-02] MEDS: CRESTOR 10MG PO SCH (20:48)
[2024-08-02] MEDS: TAMSULOSIN HCL 0.4 MG CAP PO SCH (20:48)
[2024-08-02] MEDS: INSULIN LISPRO 100 UNIT/1 ML 3ML VIAL SQ SCH (22:02)
[2024-08-02 23:00] LABS: TROPONIN I 0.012 ng/mL (0-0.300)
[2024-08-03] VITALS: BP 131/69; PULSE 53; RESP 20; TEMP 98.2; O2SAT 100
[2024-08-03 04:00] VITALS: BP 138/68; PULSE 53; RESP 18; TEMP 98.6; O2SAT 96
[2024-08-03] MEDS: PANTOPRAZOLE SOD 40 MG TABEC PO SCH (06:00)
[2024-08-03 06:20] LABS: BASOPHILS # (AUTO) 0.1 (0.0-0.1); BASOPHILS % 0.5 % (0.0-1.0); EOSINOPHILS # (AUTO) 0.4 (0.0-0.4); EOSINOPHILS % 3.8 % (0.0-6.0); HEMATOCRIT 36.2 % (38.2-49.6); HEMOGLOBIN 11.9 g/dL (14.0-18.0); LYMPHOCYTES # (AUTO) 2.6 (1.0-3.2); LYMPHOCYTES % 28.1 % (18.0-39.1); MEAN CORPUSCULAR HEMOGLOBIN 28.6 pg (28-32); MEAN CORPUSCULAR HGB CONC 32.9 g/dL (31-35); MONOCYTES # (AUTO) 0.7 (0.2-0.8); MONOCYTES % 7.2 % (4.4-11.3); NEUTROPHILS # (AUTO) 5.5 (2.1-6.9); NEUTROPHILS % 60.1 % (38.7-80.0); PLATELET COUNT 171 x10e3/uL (140-360); RED BLOOD COUNT 4.16 x10e6/uL (4.3-5.7); RED CELL DISTRIBUTION WIDTH 14.4 % (11.7-14.4); WHITE BLOOD COUNT 9.11 x10e3/uL (4.8-10.8)
[2024-08-03 06:45] LABS: ALBUMIN 3.4 g/dL (3.5-5.0); ALBUMIN/GLOBULIN RATIO 1.4 (0.8-2.0); ANION GAP 14.6 mmol/L (8-16); BILIRUBIN,TOTAL 0.4 mg/dL (0.2-1.2); CALCIUM 8.4 mg/dL (8.4-10.2); CREATININE, SERUM 0.99 mg/dL (0.72-1.25); POTASSIUM 3.6 mmol/L (3.5-5.1); TOTAL PROTEIN 5.9 g/dL (6.5-8.1)
[2024-08-03 07:47] VITALS: BP 148/55; PULSE 50; RESP 18; TEMP 98.4; O2SAT 100
[2024-08-03] MEDS: DUTASTERIDE 0.5 MG CAP PO SCH (09:04)
[2024-08-03] MEDS ORDERED: MAGNESIUM SULFATE 2GM/50ML IV ONE (09:30)
[2024-08-03 12:13] VITALS: BP 163/72; PULSE 50; RESP 18; TEMP 97.6; O2SAT 100
[2024-08-03] MEDS: TRIAMTERENE/HCTZ 37.5-25 MG TAB PO SCH (12:54)
[2024-08-03] MEDS: MAGNESIUM SULFATE 2GM/50ML 50 ML IV ONE (12:54)
== END 2024-08-03 16:15 | disposition home or self-care (01) | DRG 310 ==
LOC: ER 06:08 → ERHOLD 08:52 → MED/SURG2 10:04
PROVIDERS: ADMIT Internal Medicine; ATTEND Internal Medicine
DX: I49.5 Sick sinus syndrome (principal); E11.51 Type 2 diabetes mellitus with diabetic peripheral angiopathy without gangrene; R00.1 Bradycardia, unspecified; I10 Essential (primary) hypertension; I25.10 Atherosclerotic heart disease of native coronary artery without angina pectoris; I49.1 Atrial premature depolarization; E83.42 Hypomagnesemia; E78.5 Hyperlipidemia, unspecified; N40.0 Benign prostatic hyperplasia without lower urinary tract symptoms; R55 Syncope and collapse; K21.9 Gastro-esophageal reflux disease without esophagitis; Z79.84 Long term (current) use of oral hypoglycemic drugs; Z79.02 Long term (current) use of antithrombotics/antiplatelets; Z79.82 Long term (current) use of aspirin; Z95.5 Presence of coronary angioplasty implant and graft; Z95.820 Peripheral vascular angioplasty status with implants and grafts; Z88.1 Allergy status to other antibiotic agents; Z88.8 Allergy status to other drugs, medicaments and biological substances; F17.200 Nicotine dependence, unspecified, uncomplicated
CPT/HCPCS: 36415; 71045; 80053; 82550; 82948; 83735; 83880; 84436; 84443; 84479; 84484; 85025; 85379; 85610; 85730; 93005; 93306; 94760; 96372; 99284; J3475